=== PATIENT | male | born 1995 | race Caucasian/White ===

== ENCOUNTER 2016-07-25 17:19 | Emergency (ER) | payer SELFPAY ==
[2016-07-25 17:26] VITALS: BP 132/47; PULSE 79; RESP 16; O2SAT 96
[2016-07-25] MEDS ORDERED: LETS SOLN TOPICAL 1 EA SYR TP ONE (17:30)
[2016-07-25] MEDS: HYDROCODONE/APAP 5/325 TAB PO ONE ×2 (17:50→19:00)
[2016-07-25] MEDS ORDERED: FLUORESCEIN SODIUM 1 MG STRIP OP ONE (17:53)
[2016-07-25] MEDS ORDERED: HYDROCODONE/APAP 5/325 TAB ONE (17:55)
--- NOTE | 2016-07-25 18:10 | UCPHY ---
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 Presents complaining of significant left eye pain. Tells me that he got into the shower and tried irrigate the eye out. No other injuries. Was otherwise well prior to these events. Complains of photophobia and ongoing pain in his eye. No fever, chills, chest pain, shortness of breath, palpitations, vomiting, diarrhea, urinary complaints, headache, lightheadedness. REVIEW OF SYSTEMS: Aside from elements discussed in the HPI, a comprehensive 10-point review of systems was reviewed and is negative. PAST MEDICAL HISTORY: Denies. SOCIAL H[place]ORY[place] Patient in moderate discomfort. Please note, there is no proparacaine available at urgent care currently. Visual Acuity: noted from Nurse's notes. Focused examination of the left eye. Eyelid: Slight erythema secondary to rubbing on the eyelid. No edema or swelling. Pupils: 3 mm Round and reactive to light EOMI Conjunctivae: Mild injection, no discharge. Cornea: Multiple linear corneal abrasions across the lateral aspect of the cornea. Anterior chamber: Normal, no hyphema or hypopyon Skin: No proptosis, no periorbital erythema or swelling, no vesicles. Eyelids everted no foreign body seen. A L of normal saline irrigated through the eye in the hopes of removing any residual foreign bodies. Smoking Status: Heavy smoker Constitutional: Initial Vital Signs Heart Rate 79 07/25/16 17:21 Respiratory Rate 16 07/25/16 17:21 Blood Pressure 132/47 H 07/25/16 17:21 O2 Sat (%) 96 07/25/16 17:21 Allergies/Adverse Reactions: azithromycin Allergy (Verified 07/25/16 17:25) cefaclor [From Ceclor] Allergy (Verified 07/25/16 17:25) Penicillins Allergy (Verified 07/25/16 17:25) Home Medications: Medication Instructions Recorded NK [No Known Home Meds] 07/25/16 Medical Decision Making ED Course/Re-evaluation: 21-year-old male in moderate discomfort secondary to corneal abrasions on the left eye. Patient was discharged with gentamicin ophthalmic ointment to provide topical relief, patched to the eye, instructions to follow up with Ophthalmology tomorrow. Patient is allergic to azithromycin, so erythromycin ointment was not prescribed. Differential Diagnosis: Differential diagnosis for the patient's presenting complaints includes corneal abrasion, conjunctivitis, iritis, retained foreign body, cellulitis, periorbital cellulitis, glaucoma, and contusion. - Data Points Medications Given: Discontinued Medications Acetaminophen/Hydrocodone Bitart (Toney 5/325mg Prepack#6) 1 btl TAKEHOME EDNOW ONE Stop: 07/25/16 18:14 Last Admin: 07/25/16 19:08 Dose: 1 btl Acetaminophen/Hydrocodone Bitart (Toney 5/325) 1 tab PO EDNOW ONE Stop: 07/25/16 19:01 Last Admin: 07/25/16 19:00 Dose: 1 tab Gentamicin Sulfate (Gentak 0.3% Opht Oint Prepack) 1 tube TAKEHOME EDNOW ONE Stop: 07/25/16 18:17 Last Admin: 07/25/16 18:50 Dose: 1 tube Departure - Departure Disposition: Home, Routine, Self-Care Clinical Impression: Multiple corneal abrasions Condition: Good Instructions: Corneal Abrasion (ED) Additional Instructions: Keeping the eye patched may help with your eye discomfort. You may use hydrocodone as needed for severe eye pain. You may take ibuprofen as needed for [id number] eye pain Please use the ophthalmic ointment as directed. Half to 1 inch 4 times a day. Follow-up with the printing technician as indicated below without fail tomorrow. Referrals: Silvio Plasencia MD [Medical Doctor] - As per Instructions Stand Alone Forms: Statement of Treatment, Work Excuse - PQRS PQRS Measurement: Not applicable
[2016-07-25] MEDS ORDERED: HYDROCOD/APAP 5/325 PREPACK#6 BTL TAKEHOME ONE (18:13)
[2016-07-25] MEDS ORDERED: ERYTHROMYCIN 0.5% 1 GM OPHT.OINT EACHEYE ONE (18:14)
[2016-07-25] MEDS ORDERED: GENTAMICIN 0.3% OINT PREPACK OPHT.OINT TAKEHOME ONE (18:16)
== END 2016-07-25 19:00 | disposition home or self-care (01) ==
LOC: CED 17:19
DX: S05.02XA Injury of conjunctiva and corneal abrasion without foreign body, left eye, initial encounter (principal); Z72.0 Tobacco use
CPT/HCPCS: 99202-PO; G0463-PO